=== PATIENT | female | born 1970 | race Caucasian/White ===

== ENCOUNTER 2018-01-09 22:19 | Emergency (ER) | payer OTHER ==
[2018-01-10] MEDS: KETOROLAC 15 MG INJ IM (01:52)
[2018-01-10] MEDS: HYDROCODONE/APAP (5/325) TAB PO (01:53)
[2018-01-10] MEDS: HYDROCORTISONE 25 MG SUPP PR (02:17)
== END 2018-01-10 03:02 | disposition home or self-care (01) ==
LOC: FTE 22:19
DX: K64.3 Fourth degree hemorrhoids (principal)
CPT/HCPCS: 96372; 99284-25; J1885